=== PATIENT | female | born 1995 | race American Indian/Alaskan Native ===

== ENCOUNTER → 2021-07-05 | Emergency (ER) | payer SELFPAY ==
[~2021-07-05] MED LIST: SODIUM CHLORIDE 0.9% 1000 ML 1,000 ML ONE
[2021-07-05 21:10] VITALS: BP 107/40
== END ==
LOC: ED 20:53
DX: R07.9 Chest pain, unspecified (principal); R00.0 Tachycardia, unspecified; Z53.21 Procedure and treatment not carried out due to patient leaving prior to being seen by health care provider
CPT/HCPCS: Q0162; J7030